=== PATIENT | male | born 1945 | race Caucasian/White ===

== ENCOUNTER 2017-02-28 11:53 | Outpatient (CLI) | payer MEDICARE, OTHER ==
--- NOTE | 2017-03-01 07:30 | XRAY Report ---
RIGHT HAND, THREE VIEWS: 02/28/2017 CLINICAL HISTORY: Patient has degenerative joint disease. COMPARISON: None. FINDINGS: Significant narrowing of the proximal and distal interphalangeal joints of the right littl e finger with associated periarticular spur formation and mild bony eburnation of the heads of the pr oximal and middle phalanges. Right thumb demonstrates significant narrowing of the distal interphalangeal joint with prominent spu rring seen along the radial aspect of this joint. Xtda-[id number] narrowing is noted at the articul ation between the base of the 1st metacarpal and trapezium. Prominent spurring is noted along the ra dial aspect of the base of 1st metacarpal. Moderate degree of narrowing is noted at the right 4th MP joint. Hrpk-[id number]-evrsyhwq narrowing is noted at the right 1st MP joint. Significant narrowing is not ed in the proximal and distal interphalangeal joints of the right ring finger. Significant narrowing is noted of the distal interphalangeal joints of the index and middle fingers. Prominent spurring i s noted along the radial aspect of the distal right ulna at the radioulnar joint. IMPRESSION: MODERATE DEGREE OF OSTEOARTHRITIS OF THE RIGHT HAND IS NOTED DISCUSSED ABOVE. JOB #: [id number] EXT JOB #:[id number]
--- NOTE | 2017-03-01 07:31 | XRAY Report ---
RIGHT WRIST, THREE VIEWS: 02/28/2017 CLINICAL HISTORY: Wrist pain. FINDINGS: Mild narrowing of the right radiocarpal joint is seen. Prominent spurring is noted along the radial aspect of the distal right ulna. Mild narrowing is seen at the right radioulnar joint. IMPRESSION: MILD OSTEOARTHRITIS OF THE RIGHT WRIST. JOB #: [id number] EXT JOB #:[id number]
== END 2017-02-28 11:54 | disposition home or self-care (01) ==
LOC: DI 11:53
PROVIDERS: ATTEND Specialist
DX: M19.041 Primary osteoarthritis, right hand (principal); M19.031 Primary osteoarthritis, right wrist

== ENCOUNTER 2017-05-02 12:54 | Outpatient (CLI) | payer MEDICARE, OTHER ==
[2017-05-02 13:34] LABS: INR 4.2 (0.8-1.2); PT - PROTHROMBIN TIME 47.7 secs (9.9-12.6)
== END 2017-05-02 12:55 | disposition home or self-care (01) ==
LOC: LAB 12:54
PROVIDERS: ATTEND Pharmacist Pharmacotherapy
DX: Z79.01 Long term (current) use of anticoagulants (principal)
CPT/HCPCS: 36415; 85610

== ENCOUNTER 2017-05-05 10:49 | Outpatient (CLI) | payer MEDICARE, OTHER ==
[2017-05-05 14:16] LABS: INR 2.2 (0.8-1.2); PT - PROTHROMBIN TIME 24.7 secs (9.9-12.6)
== END 2017-05-05 10:50 | disposition home or self-care (01) ==
LOC: LAB 10:49
PROVIDERS: ATTEND Pharmacist Pharmacotherapy
DX: Z79.01 Long term (current) use of anticoagulants (principal)
CPT/HCPCS: 36415; 85610

== ENCOUNTER 2017-05-16 10:58 | Outpatient (CLI) | payer MEDICARE, OTHER ==
[2017-05-16 11:40] LABS: INR 2.5 (0.8-1.2); PT - PROTHROMBIN TIME 28.4 secs (9.9-12.6)
== END 2017-05-16 10:59 | disposition home or self-care (01) ==
LOC: LAB 10:58
PROVIDERS: ATTEND Pharmacist Pharmacotherapy
DX: Z79.01 Long term (current) use of anticoagulants (principal)
CPT/HCPCS: 36415; 85610

== ENCOUNTER 2017-05-23 10:06 | Outpatient (CLI) | payer MEDICARE, OTHER ==
[2017-05-23 10:29] LABS: INR 2.5 (0.8-1.2); PT - PROTHROMBIN TIME 27.8 secs (9.9-12.6)
== END 2017-05-23 10:07 | disposition home or self-care (01) ==
LOC: LAB 10:06
PROVIDERS: ATTEND Pharmacist Pharmacotherapy
DX: Z79.01 Long term (current) use of anticoagulants (principal)
CPT/HCPCS: 36415; 85610

== ENCOUNTER 2017-06-06 10:05 | Outpatient (CLI) | payer MEDICARE, OTHER ==
[2017-06-06 10:55] LABS: INR 2.2 (0.8-1.2); PT - PROTHROMBIN TIME 24.4 secs (9.9-12.6)
== END 2017-06-06 10:06 | disposition home or self-care (01) ==
LOC: LAB 10:05
PROVIDERS: ATTEND Pharmacist Pharmacotherapy
DX: Z79.01 Long term (current) use of anticoagulants (principal)
CPT/HCPCS: 36415; 85610

== ENCOUNTER 2017-06-15 08:20 | Outpatient (CLI) | payer MEDICARE, OTHER ==
[2017-06-15 08:56] LABS: INR 1.8 (0.8-1.2); PT - PROTHROMBIN TIME 20.1 secs (9.9-12.6)
== END 2017-06-15 08:21 | disposition home or self-care (01) ==
LOC: LAB 08:20
PROVIDERS: ATTEND Pharmacist Pharmacotherapy
DX: Z79.01 Long term (current) use of anticoagulants (principal)
CPT/HCPCS: 36415; 85610

== ENCOUNTER 2017-06-29 11:01 | Outpatient (CLI) | payer MEDICARE, OTHER ==
[2017-06-29 11:21] LABS: INR 2.2 (0.8-1.2); PT - PROTHROMBIN TIME 24.4 secs (9.9-12.6)
== END 2017-06-29 11:02 | disposition home or self-care (01) ==
LOC: LAB 11:01
PROVIDERS: ATTEND Pharmacist Pharmacotherapy
DX: Z79.01 Long term (current) use of anticoagulants (principal)
CPT/HCPCS: 36415; 85610

== ENCOUNTER 2017-07-06 10:40 | Outpatient (CLI) | payer MEDICARE, OTHER ==
[2017-07-06 11:12] LABS: INR 2.7 (0.8-1.2); PT - PROTHROMBIN TIME 29.5 secs (9.9-12.6)
== END 2017-07-06 10:41 | disposition home or self-care (01) ==
LOC: LAB 10:40
PROVIDERS: ATTEND Pharmacist Pharmacotherapy
DX: Z79.01 Long term (current) use of anticoagulants (principal)
CPT/HCPCS: 36415; 85610

== ENCOUNTER 2017-07-18 10:08 | Outpatient (CLI) | payer MEDICARE, OTHER ==
[2017-07-18 10:27] LABS: INR 2.2 (0.8-1.2); PT - PROTHROMBIN TIME 23.8 secs (9.9-12.6)
== END 2017-07-18 10:09 | disposition home or self-care (01) ==
LOC: LAB 10:08
PROVIDERS: ATTEND Pharmacist Pharmacotherapy
DX: Z79.01 Long term (current) use of anticoagulants (principal)
CPT/HCPCS: 36415; 85610

== ENCOUNTER 2017-11-03 11:26 | Outpatient (CLI) | payer MEDICARE, OTHER ==
[2017-11-03 12:10] LABS: HGB - HEMOGLOBIN 12.3 g/dL (14.0-18.0); MEAN CORPUSCULAR HEMOGLOBIN 29.3 pg (27.0-31.0); MEAN CORPUSCULAR HGB CONC 32.6 g/dL (32.0-36.0); MEAN CORPUSCULAR VOLUME 89.8 fL (80.0-94.0); MEAN PLATELET VOLUME 7.7 fL (7.4-11.4); RED BLOOD COUNT 4.18 10^6/uL (4.70-6.10); RED CELL DISTRIBUTION WIDTH 14.9 % (12.0-15.0); WHITE BLOOD COUNT 7.3 x10^3/uL (4.8-10.8)
== END 2017-11-03 11:27 | disposition home or self-care (01) ==
LOC: LAB 11:26
PROVIDERS: ATTEND Internal Medicine Cardiovascular Disease
DX: I35.0 Nonrheumatic aortic (valve) stenosis (principal)
CPT/HCPCS: 36415; 87040

== ENCOUNTER 2018-07-17 09:22 | Outpatient (CLI) | payer MEDICARE, OTHER ==
[2018-07-17 18:28] LABS: ALBUMIN 3.9 g/dL (3.2-5.5); ALKALINE PHOSPHATASE 87 IU/L (42-121); ALT ALANINE AMINOTRANSFERASE 24 IU/L (10-60); AST ASPARTATE AMINOTRANSFERASE 32 IU/L (10-42); BUN - BLOOD UREA NITROGEN 25 mg/dL (6-20); CALCIUM 8.8 mg/dL (8.5-10.3); CARBON DIOXIDE - CO2 30 mmol/L (21-32); CHLORIDE 101 mmol/L (101-111); CHOL/HDL RATIO 4.2 (<5.0); CHOLESTEROL 192 mg/dL; CREATININE 1.3 mg/dL (0.6-1.2); GFR - MDRD 54 (>89); GLUCOSE 101 mg/dL (70-100); HDL CHOLESTEROL 46 mg/dL; LDL CHOLESTEROL,CALCULATED 113 mg/dL; LDL/HDL RATIO 2.5 (<3.6); SODIUM 137 mmol/L (135-145); TOTAL PROTEIN 7.8 g/dL (6.7-8.2); VLDL CHOLESTEROL 33 mg/dL
== END 2018-07-17 09:23 | disposition home or self-care (01) ==
LOC: LAB.F 09:22
PROVIDERS: ATTEND Registered Nurse
DX: E78.5 Hyperlipidemia, unspecified (principal)
CPT/HCPCS: 36415; 80053; 80061; 83721

== ENCOUNTER 2019-03-12 08:57 | Outpatient (CLI) | payer MEDICARE, OTHER | END 2019-03-12 08:58 | disposition home or self-care (01) | LOC: LAB 08:57 | PROVIDERS: ATTEND Urology | DX: R97.20 Elevated prostate specific antigen [PSA] (principal) | CPT/HCPCS: 36415; 84153 ==

== ENCOUNTER 2019-05-11 11:59 | Outpatient (CLI) | payer MEDICARE, OTHER ==
[2019-05-11 13:27] LABS: ALBUMIN 3.7 g/dL (3.2-5.5); ALBUMIN/GLOBULIN RATIO 0.9 (1.0-2.2); BILIRUBIN,TOTAL 1.5 mg/dL (0.2-1.0); CALCIUM 8.6 mg/dL (8.5-10.3); CREATININE 1.3 mg/dL (0.6-1.2); TOTAL PROTEIN 7.7 g/dL (6.7-8.2)
== END 2019-05-11 12:00 | disposition home or self-care (01) ==
LOC: LAB 11:59
DX: R79.89 Other specified abnormal findings of blood chemistry (principal); R79.9 Abnormal finding of blood chemistry, unspecified
CPT/HCPCS: 36415; 80053

== ENCOUNTER 2020-06-05 10:22 | Outpatient (CLI) | payer MEDICARE, OTHER | END 2020-06-05 10:23 | disposition home or self-care (01) | LOC: LAB 10:22 | PROVIDERS: ATTEND Urology | DX: Z12.5 Encounter for screening for malignant neoplasm of prostate (principal) | CPT/HCPCS: 36415; G0103; 84153 ==

== ENCOUNTER 2021-05-13 10:09 | Outpatient (CLI) | payer MEDICARE, OTHER ==
[2021-05-13 15:10] LABS: HCT - HEMATOCRIT 43.5 % (42.0-52.0); HGB - HEMOGLOBIN 13.9 g/dL (14.0-18.0); MEAN CORPUSCULAR HEMOGLOBIN 30.5 pg (27.0-31.0); MEAN CORPUSCULAR VOLUME 95.4 fL (80.0-94.0); RED BLOOD COUNT 4.56 10^6/uL (4.70-6.10); RED CELL DISTRIBUTION WIDTH 13.2 % (12.0-15.0); WHITE BLOOD COUNT 5.8 x10^3/uL (4.8-10.8)
[2021-05-13 15:12] LABS: CALCIUM 8.9 mg/dL (8.5-10.3); CREATININE 1.3 mg/dL (0.6-1.2); MAGNESIUM 2.4 mg/dL (1.7-2.8); PHOSPHORUS 3.6 mg/dL (2.5-4.6); POTASSIUM 3.6 mmol/L (3.5-5.0)
[2021-05-13 15:24] LABS: CREATININE,URINE 174.2 mg/dL; PROTEIN/CREATININE RATIO,URINE 0.1 (<=0.2)
== END 2021-05-13 10:10 | disposition home or self-care (01) ==
LOC: LAB.S 10:09
PROVIDERS: ATTEND Internal Medicine Nephrology
DX: I10 Essential (primary) hypertension (principal)
CPT/HCPCS: 36415; 80069; 82570; 83735; 83970; 84156; 85027

== ENCOUNTER 2021-11-03 10:44 | Outpatient (CLI) | payer MEDICARE, OTHER | END 2021-11-03 10:45 | disposition home or self-care (01) | LOC: LAB.S 10:44 | PROVIDERS: ATTEND Urology | DX: Z12.5 Encounter for screening for malignant neoplasm of prostate (principal) | CPT/HCPCS: 36415; G0103; 84153 ==

== ENCOUNTER 2023-01-03 11:09 | Outpatient (CLI) | payer MEDICARE, OTHER | END 2023-01-03 11:10 | disposition home or self-care (01) | LOC: LAB.S 11:09 | PROVIDERS: ATTEND Psychiatry & Neurology Neurology | DX: G40.109 Localization-related (focal) (partial) symptomatic epilepsy and epileptic syndromes with simple partial seizures, not intractable, without status epilepticus (principal) | CPT/HCPCS: 36415; 80175 ==

== ENCOUNTER 2023-05-19 09:40 | Outpatient (CLI) | payer MEDICARE | END 2023-05-19 09:41 | disposition home or self-care (01) | LOC: LAB.S 09:40 | PROVIDERS: ATTEND Psychiatry & Neurology Neurology | DX: Z91.81 History of falling (principal) | CPT/HCPCS: 36415; 82306; 82607; 84207 ==

== ENCOUNTER 2023-08-23 10:45 | Outpatient (CLI) | payer MEDICARE ==
[2023-08-23 15:16] LABS: BASOPHILS % (AUTO) 0.5 %; EOSINOPHILS # (AUTO) 0.3 10^3/uL (0.0-0.7); EOSINOPHILS % (AUTO) 6.4 %; HCT - HEMATOCRIT 43.7 % (42.0-52.0); HGB - HEMOGLOBIN 13.6 g/dL (14.0-18.0); LYMPHOCYTES # (AUTO) 1.1 10^3/uL (1.5-3.5); LYMPHOCYTES % (AUTO) 26.4 %; MEAN CORPUSCULAR HGB CONC 31.1 g/dL (32.0-36.0); MEAN CORPUSCULAR VOLUME 96.5 fL (80.0-94.0); MEAN PLATELET VOLUME 10.4 fL (7.4-11.4); MONOCYTES # (AUTO) 0.4 10^3/uL (0.0-1.0); MONOCYTES % (AUTO) 8.8 %; NEUTROPHILS # (AUTO) 2.4 10^3/uL (1.5-6.6); NEUTROPHILS % (AUTO) 57.7 %; PLT - PLATELET COUNT 151 10^3/uL (130-450); RED BLOOD COUNT 4.53 10^6/uL (4.70-6.10); RED CELL DISTRIBUTION WIDTH 13.4 % (12.0-15.0); WHITE BLOOD COUNT 4.2 x10^3/uL (4.8-10.8)
[2023-08-23 15:45] LABS: ALBUMIN/GLOBULIN RATIO 1.3 (1.0-2.2); BILIRUBIN,TOTAL 1.5 mg/dL (0.2-1.0); CALCIUM 9.2 mg/dL (8.5-10.3); CREATININE 1.4 mg/dL (0.6-1.3); POTASSIUM 4.1 mmol/L (3.5-4.5); TOTAL PROTEIN 7.1 g/dL (6.4-8.9)
== END 2023-08-23 10:46 | disposition home or self-care (01) ==
LOC: LAB.S 10:45
PROVIDERS: ATTEND Physician Assistant
DX: N18.9 Chronic kidney disease, unspecified (principal); Z12.5 Encounter for screening for malignant neoplasm of prostate; N40.1 Benign prostatic hyperplasia with lower urinary tract symptoms
CPT/HCPCS: 36415; 80053; 85025; G0103; 84153

== ENCOUNTER 2024-02-21 19:14 | Outpatient (CLI) | payer MEDICARE | END 2024-02-21 23:59 | disposition short-term general hospital (02) | LOC: EMS 19:14 | DX: R55 Syncope and collapse (principal); R94.31 Abnormal electrocardiogram [ECG] [EKG] | CPT/HCPCS: A0425; A0427 ==